=== PATIENT | male | born 1955 | race Asian ===

== ENCOUNTER 2018-05-03 20:40 | Emergency (ER) | payer BC, OTHER ==
[~2018-05-03] VITALS: Ht 167.6 cm; Wt 74.8 kg
[2018-05-03 22:46] LABS: Urine Bacteria NONE SEEN /hpf (None Seen); Urine Blood Negative /uL (Negative); Urine WBC 1 /hpf (0 - 3)
[2018-05-04] MEDS ORDERED: SODIUM CHLORIDE 0.9% 1,000 ML IV ONE (00:45)
[2018-05-04 02:09] LABS: Basophils # (auto) 0 uL; Basophils % (auto) 0.5 % (0.0-2.0); Eosinophils # (auto) 0.1 uL; Hematocrit 41.1 % (41.0-53.0); Hemoglobin 13.9 g/dL (13.5-17.5); Lymphocytes # (auto) 1.2 uL; Lymphocytes % (auto) 17.3 % (10.0-50.0); Mean Corpuscular Hemoglobin 30.1 pg (28.0-32.0); Mean Corpuscular Hgb Conc. 33.7 g/dL (32.0-36.0); Mean Corpuscular Volume 89.2 fL (80.0-100.0); Monocytes # (auto) 0.6 uL; Monocytes % (auto) 8.8 % (0.0-12.0); Neutrophils # (auto) 5.2 uL; Neutrophils % (auto) 72.4 % (37.0-80.0); Platelet Count (auto) 170 10^3/uL (140-450); Red Blood Cells 4.61 10^6/uL (4.5-5.90); Red Cell Distribution Width 12.8 % (11.8-14.3); White Blood Cell 7.2 10^3/uL (4.4-10.8)
[2018-05-04 03:02] VITALS: BP 113/78
== END 2018-05-04 03:37 | disposition home or self-care (01) ==
LOC: ER 20:40
DX: R33.9 Retention of urine, unspecified (principal); E11.9 Type 2 diabetes mellitus without complications; I10 Essential (primary) hypertension
CPT/HCPCS: 36415; 51702; 81001; 82962; 84484; 85025; 93005; 96360; 99284; J7030

== ENCOUNTER 2021-08-03 03:37 | Inpatient (IN) | payer OTHER, BC ==
[~2021-08-03] VITALS: Ht 170.2 cm; Wt 76.4 kg
[2021-08-03 04:01] LABS: Basophils # (auto) 0.1 10 ^3/uL (0-0.2); Basophils % (auto) 0.6 % (0.0-2.0); Eosinophils # (auto) 0.1 10 ^3/uL (0-0.8); Eosinophils % (auto) 0.6 % (0.0-7.0); Hemoglobin 14.5 g/dL (13.5-17.5); Lymphocytes # (auto) 1.6 10 ^3/uL (0.4-5.4); Lymphocytes % (auto) 14.1 % (10.0-50.0); Mean Corpuscular Hemoglobin 29.5 pg (28.0-32.0); Mean Corpuscular Hgb Conc. 33.8 g/dL (32.0-36.0); Mean Corpuscular Volume 87.2 fL (80.0-100.0); Monocytes # (auto) 0.7 10 ^3/uL (0-1.3); Monocytes % (auto) 6.5 % (0.0-12.0); Neutrophils # (auto) 8.8 10 ^3/uL (1.6-8.6); Neutrophils % (auto) 78.2 % (37.0-80.0); Red Blood Cells 4.92 10^6/uL (4.5-5.90); Red Cell Distribution Width 13.4 % (11.8-14.3); White Blood Cell 11.2 10^3/uL (4.4-10.8)
[2021-08-03 04:21] LABS: Calcium 8.4 mg/dL (8.5-10.1); Potassium 3.9 mmol/L (3.5-5.1)
[2021-08-03 04:24] LABS: Bilirubin, Total 0.6 mg/dL (0.2-1.0); Total Protein 7.1 g/dL (6.4-8.2)
[2021-08-03] MEDS ORDERED: SODIUM CHLORIDE 0.9% 1,000 ML IV ONE (04:30)
[2021-08-03] MEDS ORDERED: PANTOPRAZOLE 40 MG/10 ML VIAL INJ IV ONE (04:30)
[2021-08-03] MEDS ORDERED: MORPHINE SULFATE 4 MG/ML SYR/VIAL IV ONE ×2 (04:30→05:00)
[2021-08-03 06:42] LABS: Urine Bacteria NONE SEEN /hpf (None Seen); Urine Blood Negative /uL (Negative); Urine Mucus FEW (None Seen); Urine Specific Gravity 1.017 (1.001-1.035); Urine WBC <1 /hpf (0 - 3)
[2021-08-03] MEDS ORDERED: DEXTROSE (50%) 50ML SYRG IV PRN (06:45)
[2021-08-03] MEDS ORDERED: hydrALAZINE HCL 20 MG/ML VL IV PRN (06:45)
[2021-08-03] MEDS ORDERED: ONDANSETRON HCL 4 MG/2 ML VIAL IV PRN (06:45)
[2021-08-03] MEDS: SODIUM CHLORIDE 0.9% 1,000 ML IV SCH ×2 (07:26→20:05)
[2021-08-03] MEDS: cefTRIAXone 1GM/50ML D5W 50 ML IV SCH (10:13)
[2021-08-03] MEDS: MORPHINE SULFATE INJECTION 2 MG/ML SYRG IV PRN ×3 (10:14→21:18)
[2021-08-03] MEDS: PANTOPRAZOLE 40 MG/10 ML VIAL INJ IV SCH (10:14)
[2021-08-03 11:17] LABS: INR 1.02 (0.9-1.15); Partial Thromboplastin Time 29.3 sec (23.6-33.0)
[2021-08-03 11:48] VITALS: BP 144/88
[2021-08-03 12:57] VITALS: BP 139/75
[2021-08-03] MEDS: ACCU-CHEK COMFORT CURVE STRIP VI SCH ×2 (14:03→18:39)
[2021-08-03] MEDS: InsuLIN REG 1unit/0.01ml Soln (100units/ml) SC SCH ×2 (14:04→18:00)
[2021-08-03] MEDS ORDERED: AMLO-496 PO (14:57)
[2021-08-03] MEDS ORDERED: SITA50TA28 PO (14:57)
[2021-08-03] MEDS ORDERED: METO-289 PO (14:57)
[2021-08-03] MEDS ORDERED: TAMS0.4C36 PO (14:57)
[2021-08-03] MEDS ORDERED: ATOR10TA52 PO (14:57)
[2021-08-03 16:35] VITALS: BP 140/83
[2021-08-03] MEDS: metroNIDAZOLE 500MG/100ML 100 ML IV SCH (21:18)
[2021-08-03 22:00] VITALS: BP 152/81
[2021-08-04] MEDS: InsuLIN REG 1unit/0.01ml Soln (100units/ml) SC SCH ×5 (00:30→23:49)
[2021-08-04] MEDS: ACCU-CHEK COMFORT CURVE STRIP VI SCH ×5 (00:32→23:43)
[2021-08-04] MEDS: MORPHINE SULFATE INJECTION 2 MG/ML SYRG IV PRN ×3 (00:52→20:12)
[2021-08-04 00:59] VITALS: BP 146/79
[2021-08-04] MEDS ORDERED: KETOROLAC TROMETH 30 MG/ML 1ML VIAL IV ONE (02:45)
[2021-08-04 04:42] VITALS: BP 145/80
[2021-08-04] MEDS: metroNIDAZOLE 500MG/100ML 100 ML IV SCH ×3 (05:34→22:27)
[2021-08-04 05:42] LABS: Basophils # (auto) 0 10 ^3/uL (0-0.2); Basophils % (auto) 0.3 % (0.0-2.0); Eosinophils # (auto) 0 10 ^3/uL (0-0.8); Eosinophils % (auto) 0.1 % (0.0-7.0); Hematocrit 38.9 % (41.0-53.0); Hemoglobin 14.1 g/dL (13.5-17.5); Lymphocytes # (auto) 0.8 10 ^3/uL (0.4-5.4); Lymphocytes % (auto) 7.8 % (10.0-50.0); Mean Corpuscular Hemoglobin 31.2 pg (28.0-32.0); Mean Corpuscular Hgb Conc. 36.3 g/dL (32.0-36.0); Mean Corpuscular Volume 85.8 fL (80.0-100.0); Monocytes # (auto) 0.8 10 ^3/uL (0-1.3); Monocytes % (auto) 7.8 % (0.0-12.0); Neutrophils # (auto) 8.3 10 ^3/uL (1.6-8.6); Nucleated Red Blood Cells % 0.1 %; Red Blood Cells 4.53 10^6/uL (4.5-5.90); Red Cell Distribution Width 13.3 % (11.8-14.3); White Blood Cell 9.9 10^3/uL (4.4-10.8)
[2021-08-04 06:03] LABS: Potassium 3.1 mmol/L (3.5-5.1)
[2021-08-04 06:16] LABS: Albumin 3.3 g/dL (3.4-5.0); BUN/Creatinine Ratio 15.3; Bilirubin, Total 0.7 mg/dL (0.2-1.0); Calcium 8.1 mg/dL (8.5-10.1); Total Protein 6.4 g/dL (6.4-8.2)
[2021-08-04 09:00] VITALS: BP 156/83
[2021-08-04] MEDS: SODIUM CHLORIDE 0.9% 1,000 ML IV SCH (09:25)
[2021-08-04] MEDS: PANTOPRAZOLE 40 MG/10 ML VIAL INJ IV SCH (10:08)
[2021-08-04] MEDS: cefTRIAXone 1GM/50ML D5W 50 ML IV SCH (10:09)
[2021-08-04] MEDS: POTASSIUM CHL 20MEQ/100ML 100 ML IV SCH ×2 (11:00→13:00)
[2021-08-04] MEDS ORDERED: DexAMETHasone SOD PHOS 10MG/1ML VIAL INJ IV ONE (11:45)
[2021-08-04] MEDS ORDERED: SODIUM CHLORIDE LOCK 10 ML ONE (11:46)
[2021-08-04] MEDS ORDERED: PROPOFOL 10 MG/ML 20 ML IV ONE (11:46)
[2021-08-04] MEDS ORDERED: ROCURONIUM 10MG/ML 10ML VIAL IV ONE (11:46)
[2021-08-04] MEDS ORDERED: MIDAZOLAM HCL 2MG/2ML 2ml VIAL (1mg/ml) ONE (11:46)
[2021-08-04] MEDS ORDERED: NEOSTIGMINE 1 MG/ML INJ (10mg/10ML VIAL) ONE (11:46)
[2021-08-04] MEDS ORDERED: GLYCOPYRROLATE 0.2 MG/ML 1ML VIAL ONE (11:46)
[2021-08-04] MEDS ORDERED: ONDANSETRON HCL 4 MG/2 ML VIAL ONE (11:46)
[2021-08-04] MEDS ORDERED: fentaNYL CITRATE 100 MCG/2 ML VL ONE (11:46)
[2021-08-04] MEDS ORDERED: ceFAZolin 1GM/50ML 100 ML IV ONE (12:32)
[2021-08-04] MEDS ORDERED: BUPIVACAINE W/ EPINEPH 0.25% INJ 50ML MDV ONE (12:57)
[2021-08-04 13:00] VITALS: BP 160/95
[2021-08-04] MEDS ORDERED: HYDROmorphone HCL 2 MG/ML VL IV PRN (13:00)
[2021-08-04] MEDS ORDERED: MORPHINE SULFATE 4 MG/ML SYR/VIAL IV PRN (13:00)
[2021-08-04] MEDS ORDERED: METOCLOPRAMIDE HCL 5MG/ml INJ 2ml VIAL IV PRN (13:00)
[2021-08-04] MEDS ORDERED: ACCU-CHEK COMFORT CURVE STRIP VI ONE (13:00)
[2021-08-04] MEDS ORDERED: POVIDONE IODINE 10 % TOPICAL OINT 30GM TOP ONE (14:25)
[2021-08-04] MEDS: D5W/SOD CHL 0.45%/KCL 20MEQ 1,000 ML IV SCH ×2 (14:30→23:05)
[2021-08-04] MEDS ORDERED: ACETAMINOPHEN/CODEINE#3 (300/30mg) TAB PO PRN (14:30)
[2021-08-04 17:00] VITALS: BP 139/75
[2021-08-04 21:53] VITALS: BP 131/72
[2021-08-05 04:36] VITALS: BP 121/73
[2021-08-05 04:56] LABS: Basophils # (auto) 0 10 ^3/uL (0-0.2); Basophils % (auto) 0.3 % (0.0-2.0); Eosinophils # (auto) 0 10 ^3/uL (0-0.8); Hematocrit 34.9 % (41.0-53.0); Hemoglobin 12.5 g/dL (13.5-17.5); Lymphocytes # (auto) 0.8 10 ^3/uL (0.4-5.4); Lymphocytes % (auto) 11.4 % (10.0-50.0); Mean Corpuscular Hgb Conc. 35.9 g/dL (32.0-36.0); Mean Corpuscular Volume 86.4 fL (80.0-100.0); Monocytes # (auto) 0.7 10 ^3/uL (0-1.3); Monocytes % (auto) 10.5 % (0.0-12.0); Neutrophils # (auto) 5.4 10 ^3/uL (1.6-8.6); Neutrophils % (auto) 77.8 % (37.0-80.0); Red Blood Cells 4.04 10^6/uL (4.5-5.90); White Blood Cell 6.9 10^3/uL (4.4-10.8)
[2021-08-05 05:16] LABS: Albumin 2.8 g/dL (3.4-5.0); BUN/Creatinine Ratio 19.4; Calcium 7.6 mg/dL (8.5-10.1); Potassium 3.6 mmol/L (3.5-5.1)
[2021-08-05 05:19] LABS: Bilirubin, Total 0.6 mg/dL (0.2-1.0); Total Protein 5.6 g/dL (6.4-8.2)
[2021-08-05] MEDS: metroNIDAZOLE 500MG/100ML 100 ML IV SCH ×2 (06:07→14:01)
[2021-08-05] MEDS: MORPHINE SULFATE INJECTION 2 MG/ML SYRG IV PRN (06:08)
[2021-08-05] MEDS: ACCU-CHEK COMFORT CURVE STRIP VI SCH ×2 (06:09→11:58)
[2021-08-05] MEDS: InsuLIN REG 1unit/0.01ml Soln (100units/ml) SC SCH ×2 (06:10→12:02)
[2021-08-05] MEDS: D5W/SOD CHL 0.45%/KCL 20MEQ 1,000 ML IV SCH ×2 (07:10→15:41)
[2021-08-05 07:55] VITALS: BP 131/79
[2021-08-05] MEDS: cefTRIAXone 1GM/50ML D5W 50 ML IV SCH (09:22)
[2021-08-05] MEDS ORDERED: LEVO500T31 PO (11:09)
[2021-08-05] MEDS ORDERED: METR500T PO (11:09)
[2021-08-05 11:34] VITALS: BP 166/90
[2021-08-05 12:00] VITALS: BP 129/80
[2021-08-05 16:00] VITALS: BP 128/76
== END 2021-08-05 16:05 | disposition home or self-care (01) | DRG 419 ==
LOC: ER 03:37 → OVERFLOW 06:31 → CENTRAL 10:10
PROVIDERS: ADMIT Nurse Practitioner; ATTEND Internal Medicine
PROC: 0FT44ZZ Resection of Gallbladder, Percutaneous Endoscopic Approach (ICD-10-PCS; principal; 2021-08-04 13:36)
DX: K80.00 Calculus of gallbladder with acute cholecystitis without obstruction (principal); I10 Essential (primary) hypertension; E11.9 Type 2 diabetes mellitus without complications; E66.9 Obesity, unspecified; E87.6 Hypokalemia; N40.0 Benign prostatic hyperplasia without lower urinary tract symptoms; Z20.822 Contact with and (suspected) exposure to COVID-19; Z68.26 Body mass index [BMI] 26.0-26.9, adult
CPT/HCPCS: 36415; 71045; 74176; 76705; 78226; 80053; 80061; 81001; 82962; 83036; 83690; 83735; 85025; 85610; 85730; 86850; 86900; 86901; 96374; 96375; C9113; G0378; J0690; J0696; J1100; J1815; J1885; J2250; J2405; J2704; J3490

== ENCOUNTER 2021-08-06 00:42 | Inpatient (IN) | payer OTHER, BC ==
[~2021-08-06] VITALS: Ht 167.6 cm; Wt 74.1 kg
[2021-08-06] VITALS (12 sets, daily range): BP systolic 112–151; BP diastolic 74–121
[~2021-08-06 00:42] MED LIST: AMLO-496 PO; ATOR10TA52 PO; LEVO500T31 PO; METO-289 PO; METR500T PO; SITA50TA28 PO; TAMS0.4C36 PO
[2021-08-06] MEDS ORDERED: ADENOSINE 6 MG/2 ML INJ IV ONE (01:21)
[2021-08-06] MEDS ORDERED: dilTIAZem 25 MG/5 ML VIAL IV ONE ×4 (01:31→02:00)
[2021-08-06 01:42] LABS: White Blood Cell 9.1 10^3/uL (4.4-10.8)
[2021-08-06 01:46] LABS: Basophils # (auto) 0 10 ^3/uL (0-0.2); Basophils % (auto) 0.4 % (0.0-2.0); Eosinophils # (auto) 0.1 10 ^3/uL (0-0.8); Eosinophils % (auto) 1.1 % (0.0-7.0); Hematocrit 37.1 % (41.0-53.0); Hemoglobin 12.9 g/dL (13.5-17.5); Lymphocytes # (auto) 1.6 10 ^3/uL (0.4-5.4); Lymphocytes % (auto) 18.1 % (10.0-50.0); Mean Corpuscular Hemoglobin 30.3 pg (28.0-32.0); Mean Corpuscular Hgb Conc. 34.9 g/dL (32.0-36.0); Mean Corpuscular Volume 86.8 fL (80.0-100.0); Monocytes # (auto) 0.9 10 ^3/uL (0-1.3); Monocytes % (auto) 10.4 % (0.0-12.0); Neutrophils # (auto) 6.3 10 ^3/uL (1.6-8.6); Nucleated Red Blood Cells % 0.1 %; Red Blood Cells 4.27 10^6/uL (4.5-5.90); Red Cell Distribution Width 13.2 % (11.8-14.3)
[2021-08-06 02:09] LABS: Albumin 3.2 g/dL (3.4-5.0); BUN/Creatinine Ratio 16.2; Calcium 8.2 mg/dL (8.5-10.1); Magnesium 2.2 mg/dL (1.6-2.6); Potassium 3.3 mmol/L (3.5-5.1)
[2021-08-06 02:12] LABS: Bilirubin, Total 0.7 mg/dL (0.2-1.0); Total Protein 6.5 g/dL (6.4-8.2)
[2021-08-06] MEDS ORDERED: dilTIAZem 125mg/125ml BAG KIT 125 ML IV ONE (02:15)
[2021-08-06] MEDS ORDERED: POTASSIUM CHL 20 Meq TABLET PO ONE (02:15)
[2021-08-06] MEDS ORDERED: NITROGLYCERIN 0.4 MG SL TAB SL PRN (02:45)
[2021-08-06] MEDS ORDERED: METOPROLOL TARTRATE 1MG/1ML-5ML VIAL IV ONE (02:45)
[2021-08-06] MEDS ORDERED: MORPHINE SULFATE INJECTION 2 MG/ML SYRG IV PRN (02:45)
[2021-08-06] MEDS ORDERED: DIGOXIN (250MCG/ML) 2 ML AMPULE IV ONE ×2 (03:37→03:45)
[2021-08-06 03:38] LABS: Urine Bacteria FEW /hpf (None Seen); Urine Blood 3+ /uL (Negative); Urine Mucus FEW (None Seen); Urine Specific Gravity 1.004 (1.001-1.035); Urine WBC 2 /hpf (0 - 3)
[2021-08-06] MEDS: amLODIPine BESYLATE 5 MG TAB PO SCH (10:02)
[2021-08-06] MEDS: METOPROLOL SUCCINATE XL 50 MG TAB PO SCH (10:02)
[2021-08-06] MEDS: ATORVASTATIN 20 MG TAB PO SCH (10:03)
[2021-08-06] MEDS ORDERED: DIGOXIN (250MCG/ML) 2 ML AMPULE IV SCH (12:00)
[2021-08-06] MEDS ORDERED: TAMSULOSIN HYDROCHLORIDE 0.4 MG CAP PO ONE (15:15)
[2021-08-06] MEDS: TAMSULOSIN HYDROCHLORIDE 0.4 MG CAP PO SCH (16:11)
[2021-08-06] MEDS ORDERED: TAMSULOSIN HYDROCHLORIDE 0.4 MG CAP PO SCH (18:00)
[2021-08-07] MEDS ORDERED: PNEUMOCOCCAL VACC POLYS 25 MCG/0.5 ML VIAL IM ONE (01:15)
[2021-08-07 05:00] VITALS: BP 138/87
[2021-08-07 07:17] LABS: Magnesium 2.4 mg/dL (1.6-2.6); Potassium 3.7 mmol/L (3.5-5.1)
[2021-08-07 07:21] LABS: BUN/Creatinine Ratio 14.8
[2021-08-07 09:00] VITALS: BP 145/78
[2021-08-07] MEDS: ATORVASTATIN 20 MG TAB PO SCH (10:26)
[2021-08-07] MEDS: amLODIPine BESYLATE 5 MG TAB PO SCH (10:27)
[2021-08-07] MEDS: METOPROLOL SUCCINATE XL 50 MG TAB PO SCH (10:27)
[2021-08-07] MEDS: TAMSULOSIN HYDROCHLORIDE 0.4 MG CAP PO SCH (17:46)
[2021-08-07 22:00] VITALS: BP 138/78
[2021-08-08 05:32] VITALS: BP 152/91
[2021-08-08 09:22] VITALS: BP 143/87
[2021-08-08] MEDS: amLODIPine BESYLATE 5 MG TAB PO SCH (10:34)
[2021-08-08] MEDS: METOPROLOL SUCCINATE XL 50 MG TAB PO SCH (10:35)
[2021-08-08] MEDS: ATORVASTATIN 20 MG TAB PO SCH (10:35)
[2021-08-08 13:00] VITALS: BP 123/81
[2021-08-08 15:18] VITALS: BP 123/81
== END 2021-08-08 16:53 | disposition home or self-care (01) | DRG 696 ==
LOC: ER 00:42 → OVERFLOW 02:31 → ICU WEST 08:31 → TELE-WESTW 21:35
PROVIDERS: ADMIT Internal Medicine; ATTEND Internal Medicine
PROC: 5A2204Z Restoration of Cardiac Rhythm, Single (ICD-10-PCS; principal; 2021-08-06)
PROC: 3E0234Z Introduction of Serum, Toxoid and Vaccine into Muscle, Percutaneous Approach (ICD-10-PCS; 2021-08-07)
DX: R33.8 Other retention of urine (principal); I47.1 Supraventricular tachycardia; T41.45XA Adverse effect of unspecified anesthetic, initial encounter; N40.1 Benign prostatic hyperplasia with lower urinary tract symptoms; I48.91 Unspecified atrial fibrillation; R31.9 Hematuria, unspecified; Z90.49 Acquired absence of other specified parts of digestive tract; E11.9 Type 2 diabetes mellitus without complications; I10 Essential (primary) hypertension; Y92.89 Other specified places as the place of occurrence of the external cause; Z23 Encounter for immunization; Z20.822 Contact with and (suspected) exposure to COVID-19
CPT/HCPCS: 36415; 71045; 76775; 80048; 80053; 80061; 81001; 83735; 83880; 84154; 84443; 84484; 85025; 87081; 92960; 93005; 93306; 96365; 96375; 99291; G0378; J0153

== ENCOUNTER 2021-08-15 22:00 | Emergency (ER) | payer OTHER, BC ==
[~2021-08-15] VITALS: Ht 172.7 cm; Wt 83.9 kg
[~2021-08-15 22:00] MED LIST changes: -LEVO500T31 PO; -METR500T PO
[2021-08-16 00:09] LABS: Urine Bacteria FEW /hpf (None Seen); Urine Blood Negative /uL (Negative); Urine Specific Gravity 1.012 (1.001-1.035); Urine WBC 1 /hpf (0 - 3)
[2021-08-16 01:30] VITALS: BP 130/71
== END 2021-08-16 01:33 | disposition home or self-care (01) ==
LOC: ER 22:00 → EDBD 22:00 → EDUNIT# 22:00 → ER 08-16 01:33
DX: R33.9 Retention of urine, unspecified (principal); E11.9 Type 2 diabetes mellitus without complications; I10 Essential (primary) hypertension; E78.5 Hyperlipidemia, unspecified; Z90.49 Acquired absence of other specified parts of digestive tract; Z79.899 Other long term (current) drug therapy
CPT/HCPCS: 51702; 81001

== ENCOUNTER 2023-12-12 10:57 | Inpatient (IN) | payer BC, OTHER ==
[~2023-12-12] VITALS: Ht 168.9 cm; Wt 74.9 kg
[~2023-12-12 10:57] MED LIST changes: -AMLO-496 PO; +AMLO1TAB23 PO; -TAMS0.4C36 PO; +TAMS0.4C39 PO
[2023-12-12 11:43] LABS: Basophils # (auto) 0 10 ^3/uL (0-0.2); Basophils % (auto) 0.5 % (0.0-2.0); Eosinophils # (auto) 0.1 10 ^3/uL (0-0.8); Eosinophils % (auto) 0.8 % (0.0-7.0); Hematocrit 43.7 % (41.0-53.0); Hemoglobin 15.2 g/dL (13.5-17.5); Lymphocytes # (auto) 1.4 10 ^3/uL (0.4-5.4); Mean Corpuscular Hemoglobin 30.7 pg (28.0-32.0); Mean Corpuscular Hgb Conc. 34.7 g/dL (32.0-36.0); Mean Corpuscular Volume 88.6 fL (80.0-100.0); Monocytes # (auto) 0.5 10 ^3/uL (0-1.3); Monocytes % (auto) 6.7 % (0.0-12.0); Neutrophils # (auto) 5.2 10 ^3/uL (1.6-8.6); Platelet Count (auto) 170 10^3/uL (140-450); Red Blood Cells 4.94 10^6/uL (4.5-5.90); White Blood Cell 7.1 10^3/uL (4.4-10.8)
[2023-12-12 12:04] LABS: Alanine Aminotransferase 25 U/L (7-40); Albumin 4.2 g/dL (3.2-4.8); Alkaline Phosphatase 68 U/L (46-116); Anion Gap 5 (5-15); Aspartate Aminotransferase 17 U/L (13-40); BUN/Creatinine Ratio 17.8 (10.0-20.0); Blood Urea Nitrogen 16 mg/dL (9-23); Calcium 8.9 mg/dL (8.7-10.4); Carbon Dioxide 25 mmol/L (20-30); Chloride 109 mmol/L (98-107); Glucose 232 mg/dL (74-106); Lipase 108 U/L (12-53); Potassium 4.1 mmol/L (3.5-5.1); Sodium 139 mmol/L (136-145)
[2023-12-12 12:05] LABS: Bilirubin, Total 0.9 mg/dL (0.2-1.0); Total Protein 6.7 g/dL (5.7-8.2)
[2023-12-12] MEDS: fentaNYL CITRATE 100 MCG/2 ML VL IV ONE (12:48)
[2023-12-12] MEDS: PANTOPRAZOLE 40 MG/10 ML VIAL INJ IV ONE (14:09)
[2023-12-12] MEDS: SODIUM CHLORIDE 0.9% 1,000 ML IV ONE (14:09)
[2023-12-12 15:31] LABS: Triglycerides 73 mg/dL (< 150)
[2023-12-12 15:32] LABS: LDL Cholesterol 56 mg/dL (< 100)
[2023-12-12 15:33] LABS: HDL Cholesterol 59 mg/dL (40-59)
[2023-12-12 15:34] LABS: Cholesterol 134 mg/dL (< 200)
[2023-12-12] MEDS: LACTATED RINGER'S 1,000 ML IV ONE (15:41)
[2023-12-12 16:26] LABS: Urine Bacteria None Seen /hpf (None Seen)
[2023-12-12 16:45] LABS: Urine Blood Negative /uL (Negative); Urine Clarity Clear (Clear); Urine Color Yellow (Yellow); Urine Mucus FEW (None Seen); Urine Protein, UAD TRACE (Negative); Urine Specific Gravity 1.028 (1.001-1.035); Urine Urobilinogen Normal (Negative); Urine WBC 1 /hpf (0 - 3); Urine pH 5.5 (5.0-9.0)
[2023-12-12] MEDS ORDERED: HYDROmorphone HCL 2 MG/ML VL/or syr IV PRN (16:45)
[2023-12-12] MEDS ORDERED: ONDANSETRON HCL 4 MG/2 ML VIAL IV PRN (16:45)
[2023-12-12] MEDS ORDERED: DOCUSATE SOD 100 MG CAP PO PRN (16:45)
[2023-12-12] MEDS ORDERED: ACETAMINOPHEN 325 MG TAB PO PRN (16:45)
[2023-12-12 20:37] VITALS: PULSE 61; RESP 18; O2SAT 95
[2023-12-12] MEDS: SODIUM CHLOR 0.9% PF (SALINE LOCK) 10ML VIAL/SYR IV SCH (22:29)
[2023-12-13] VITALS (9 sets, daily range): BP systolic 125–156; BP diastolic 65–95; PULSE 56–63; RESP 18–20; TEMP 97.7–98.9; O2SAT 93–98
[2023-12-13] MEDS: HYDROcodone-ACET 5/325MG TAB PO PRN (01:10)
[2023-12-13] MEDS ORDERED: METF-370 PO (03:59)
[2023-12-13 06:36] LABS: Basophils # (auto) 0 10 ^3/uL (0-0.2); Basophils % (auto) 0.3 % (0.0-2.0); Eosinophils # (auto) 0.1 10 ^3/uL (0-0.8); Eosinophils % (auto) 1.6 % (0.0-7.0); Hematocrit 42.4 % (41.0-53.0); Hemoglobin 14.5 g/dL (13.5-17.5); Lymphocytes # (auto) 1.4 10 ^3/uL (0.4-5.4); Lymphocytes % (auto) 19.7 % (10.0-50.0); Mean Corpuscular Hemoglobin 30.4 pg (28.0-32.0); Mean Corpuscular Hgb Conc. 34.3 g/dL (32.0-36.0); Mean Corpuscular Volume 88.7 fL (80.0-100.0); Monocytes # (auto) 0.7 10 ^3/uL (0-1.3); Monocytes % (auto) 9.1 % (0.0-12.0); Neutrophils % (auto) 69.3 % (37.0-80.0); Nucleated Red Blood Cells % 0.1 %; Platelet Count (auto) 148 10^3/uL (140-450); Red Blood Cells 4.79 10^6/uL (4.5-5.90); Red Cell Distribution Width 12.9 % (11.8-14.3); White Blood Cell 7.2 10^3/uL (4.4-10.8)
[2023-12-13 06:42] LABS: Alanine Aminotransferase 19 U/L (7-40); Albumin 3.9 g/dL (3.2-4.8); Alkaline Phosphatase 60 U/L (46-116); Anion Gap 5 (5-15); Aspartate Aminotransferase 14 U/L (13-40); BUN/Creatinine Ratio 13.4 (10.0-20.0); Blood Urea Nitrogen 11 mg/dL (9-23); Carbon Dioxide 27 mmol/L (20-30); Chloride 108 mmol/L (98-107); Glucose 146 mg/dL (74-106); Potassium 3.7 mmol/L (3.5-5.1); Sodium 140 mmol/L (136-145)
[2023-12-13 06:43] LABS: Bilirubin, Total 0.9 mg/dL (0.2-1.0); Total Protein 6.4 g/dL (5.7-8.2)
[2023-12-13] MEDS: PANTOPRAZOLE 40 MG/10 ML VIAL INJ IV SCH (10:09)
[2023-12-13] MEDS: ENOXAPARIN SOD 40 MG/0.4 ML SYRINGE SC SCH (10:10)
[2023-12-13] MEDS ORDERED: DEXTROSE (50%) 50ML SYRG IV PRN (12:00)
[2023-12-13] MEDS: InsuLIN REG 1unit/0.01ml Soln (100units/ml) SC SCH (18:30)
[2023-12-13] MEDS: ACCU-CHEK COMFORT CURVE STRIP VI SCH (18:30)
[2023-12-13] MEDS: TAMSULOSIN HYDROCHLORIDE 0.4 MG CAP PO SCH (18:43)
[2023-12-13] MEDS: ATORVASTATIN 20 MG TAB PO SCH (22:00)
[2023-12-14] VITALS (7 sets, daily range): BP systolic 126–157; BP diastolic 67–82; PULSE 58–65; RESP 18–20; TEMP 36.6; O2SAT 93–97
[2023-12-14 05:26] LABS: Basophils # (auto) 0 10 ^3/uL (0-0.2); Basophils % (auto) 0.3 % (0.0-2.0); Eosinophils # (auto) 0.1 10 ^3/uL (0-0.8); Eosinophils % (auto) 1.3 % (0.0-7.0); Hematocrit 41.5 % (41.0-53.0); Hemoglobin 14.3 g/dL (13.5-17.5); Lymphocytes # (auto) 1.2 10 ^3/uL (0.4-5.4); Lymphocytes % (auto) 18.7 % (10.0-50.0); Mean Corpuscular Hemoglobin 30.8 pg (28.0-32.0); Mean Corpuscular Hgb Conc. 34.5 g/dL (32.0-36.0); Mean Corpuscular Volume 89.3 fL (80.0-100.0); Monocytes # (auto) 0.6 10 ^3/uL (0-1.3); Monocytes % (auto) 9.3 % (0.0-12.0); Neutrophils # (auto) 4.5 10 ^3/uL (1.6-8.6); Neutrophils % (auto) 70.4 % (37.0-80.0); Nucleated Red Blood Cells % 0.1 %; Platelet Count (auto) 150 10^3/uL (140-450); Red Blood Cells 4.64 10^6/uL (4.5-5.90); Red Cell Distribution Width 13.2 % (11.8-14.3); White Blood Cell 6.4 10^3/uL (4.4-10.8)
[2023-12-14 05:40] LABS: INR 0.95 (0.9-1.15); Partial Thromboplastin Time 28.4 SEC (24.5-34.5); Prothrombin Time 10.1 sec (9.3-11.8)
[2023-12-14 05:46] LABS: Alanine Aminotransferase 15 U/L (7-40); Albumin 3.9 g/dL (3.2-4.8); Alkaline Phosphatase 62 U/L (46-116); Anion Gap 7 (5-15); Aspartate Aminotransferase 13 U/L (13-40); BUN/Creatinine Ratio 21.4 (10.0-20.0); Blood Urea Nitrogen 18 mg/dL (9-23); Calcium 9.1 mg/dL (8.7-10.4); Carbon Dioxide 27 mmol/L (20-30); Chloride 106 mmol/L (98-107); Glucose 161 mg/dL (74-106); Potassium 3.7 mmol/L (3.5-5.1); Sodium 140 mmol/L (136-145)
[2023-12-14 05:47] LABS: Bilirubin, Total 0.7 mg/dL (0.2-1.0); Total Protein 6.3 g/dL (5.7-8.2)
[2023-12-14] MEDS ORDERED: PATIENTS OWN MEDICATION (Atorvastatin Calcium 10 MG) PO SCH (10:00)
[2023-12-14] MEDS ORDERED: PATIENTS OWN MEDICATION (Amlodipine Besylate 1 TAB) PO SCH (10:00)
[2023-12-14] MEDS: OXYBUTYNIN CHL 5 MG TAB PO SCH (11:25)
[2023-12-14] MEDS: amLODIPine BESYLATE 5 MG TAB PO SCH (11:26)
[2023-12-14] MEDS: METOPROLOL SUCCINATE XL 50 MG TAB PO SCH (11:26)
== END 2023-12-14 17:00 | disposition home or self-care (01) | DRG 726 ==
LOC: ER 10:57 → OVERFLOW 16:41 → WEST WING 23:47
PROVIDERS: ADMIT Internal Medicine; ATTEND Nurse Practitioner Acute Care
PROC: 0TJB8ZZ Inspection of Bladder, Via Natural or Artificial Opening Endoscopic (ICD-10-PCS; principal; 2023-12-13)
DX: N40.1 Benign prostatic hyperplasia with lower urinary tract symptoms (principal); N13.8 Other obstructive and reflux uropathy; K80.20 Calculus of gallbladder without cholecystitis without obstruction; I10 Essential (primary) hypertension; I48.91 Unspecified atrial fibrillation; R33.8 Other retention of urine; E11.9 Type 2 diabetes mellitus without complications; E78.5 Hyperlipidemia, unspecified; Z90.49 Acquired absence of other specified parts of digestive tract; Z79.899 Other long term (current) drug therapy
CPT/HCPCS: 36415; 71045; 74176; 76700; 80053; 80061; 81001; 82962; 83036; 83605; 83690; 84153; 84484; 85025; 85610; 85730; 86850; 86900; 86901; 93005; 96374; 96375; G0378; J1815; J2470